=== PATIENT | female | born 1950 | race Caucasian/White ===

== ENCOUNTER → 2016-06-07 | Outpatient (CLI) | payer OTHER ==
--- NOTE | 2016-06-07 19:44 | REP ---
Right shoulder series: Three views: History: Right shoulder pain after a fall. Findings: There is a nondisplaced fracture through the greater tuberosity of the right proximal humerus. Diffuse osteopenia is noted. The right glenohumeral and acromioclavicular joints are normally aligned. No other fracture is seen. There is dystrophic soft-tissue calcification at the superior aspect of the glenohumeral articulation consistent with calcific tendonitis or bursitis. Mild osteoarthritis is seen at the AC joint. Impression: Nondisplaced greater tuberosity fracture right proximal humerus. Diffuse osteopenia. Signed by Ray Soto MD 06/08/2016 08:56 A
--- NOTE | 2016-06-07 19:44 | REP ---
Right clavicle series: Two views. History: Pain after a fall. Findings: A comminuted nondisplaced fracture of the greater tuberosity of the proximal humerus is noted as on the shoulder series. The clavicle appears intact. AC joint hypertrophy is seen consistent with osteoarthritis. Impression: Nondisplaced fracture right proximal humerus. No other fracture seen. Signed by Ray Soto MD 06/08/2016 08:56 A
== END ==
LOC: M WUC 18:50
PROVIDERS: ATTEND Physician Assistant
DX: S42.254A Nondisplaced fracture of greater tuberosity of right humerus, initial encounter for closed fracture (principal); X58.XXXA Exposure to other specified factors, initial encounter; Y92.89 Other specified places as the place of occurrence of the external cause; Y93.89 Activity, other specified; Y99.8 Other external cause status; M19.011 Primary osteoarthritis, right shoulder; M85.821 Other specified disorders of bone density and structure, right upper arm

== ENCOUNTER → 2016-06-15 | Outpatient (REF) | payer OTHER ==
[2016-06-15 12:28] LABS: PHOSPHORUS LEVEL 3.7 MG/DL (2.5-4.9)
== END ==
LOC: M LAB REF 12:01
PROVIDERS: ATTEND Nurse Practitioner Adult Health
DX: M85.80 Other specified disorders of bone density and structure, unspecified site (principal)

== ENCOUNTER 2016-11-01 12:57 | Inpatient (IN) | payer OTHER ==
[~2016-11-01] VITALS: Ht 162.6 cm; Wt 63.0 kg
[2016-11-01] MEDS ORDERED: VENL100T PO (13:10)
[2016-11-01] MEDS ORDERED: ASPIRIN 81 MG CHEW TABLET PO ONE (13:45)
[2016-11-01 13:59] LABS: BASO % 0.3 % (0.0-1.0); EOS # 0.1 K/mm3 (0.0-0.50); EOS % 0.9 % (0.0-3.0); LARGE UNSTAINED CELL # 0.1 K/mm3 (0.0-0.4); LARGE UNSTAINED CELL % 1.1 % (0.0-4.0); LYMPH # 1.5 K/mm3 (1.5-4.5); LYMPH % 20.4 % (24.0-44.0); MEAN CORPUSCULAR HEMOGLOBIN 31.6 pg (27.0-33.0); MEAN CORPUSCULAR HGB CONC 33.2 g/dl (32.0-36.5); MEAN CORPUSCULAR VOLUME 95.3 fl (80.0-96.0); MONO # 0.4 K/mm3 (0.0-0.8); MONO % 5.4 % (0.0-5.0); NEUTROPHILS % 71.8 % (36.0-66.0); PLATELET COUNT, AUTOMATED 371 k/mm3 (150-450); RED CELL DISTRIBUTION WIDTH 13.4 % (11.5-14.5)
[2016-11-01 14:20] LABS: ANION GAP 9 MEQ/L (8-16); BLOOD UREA NITROGEN 19 MG/DL (7-18); CALCIUM LEVEL 8.9 MG/DL (8.8-10.2); CARBON DIOXIDE LEVEL 25 MEQ/L (21-32); CHLORIDE LEVEL 106 MEQ/L (98-107); CREATININE FOR GFR 0.82 MG/DL (0.55-1.02); GLOMERULAR FILTRATION RATE > 60.0 (>45); GLUCOSE, FASTING 111 MG/DL (80-110); POTASSIUM SERUM 3.9 MEQ/L (3.5-5.1); SODIUM LEVEL 140 MEQ/L (136-145)
--- NOTE | 2016-11-01 14:34 | REP ---
PORTABLE CHEST, ONE VIEW: HISTORY: Chest pain. A diffuse increase in interstitial markings is present in the lungs. The cardiac silhouette is enlarged. The pulmonary vasculature is prominent. IMPRESSION: Findings consistent with congestive heart failure. Signed by Yonatan Camp MD 11/01/2016 02:35 P
[2016-11-01] MEDS ORDERED: ISOVUE-370 76% 100ML VIAL (Q9967) As Ordered ONE (14:42)
[2016-11-01] MEDS ORDERED: FUROSEMIDE 40 MG/4 ML VIAL (J1940) IV ONE (14:45)
[2016-11-01] MEDS ORDERED: METOPROLOL TART 50 MG TAB PO ONE (15:00)
[2016-11-01] MEDS ORDERED: LABETALOL HCL 100 MG/20 ML VIAL IV STA (15:42)
--- NOTE | 2016-11-01 15:47 | REP ---
CT pulmonary angiogram: With IV contrast. History: Dyspnea. Question pulmonary embolus. Comparison studies: Today's chest x-ray. Contrast dose: 75 cc's of Isovue [address] technique: Helical scanning is acquired and overlapping 1.5 mm and contiguous 3 mm axial images are reformatted. In addition, a 3-D work station is deployed to generate thick slab maximum intensity projection images in sagittal and coronal imaging projections. CT pulmonary angiographic findings: There is good opacification of the pulmonary arterial tree. There is no CT evidence of pulmonary embolus. There is central pulmonary artery dilation with some pruning suggesting pulmonary arterial hypertension. There is right atrial and left atrial enlargement and some left ventricular enlargement is seen. Question left ventricular hypertrophy. Overall cardiomegaly is observed. The thoracic aorta is not very well enhanced because of the timing postcontrast but no obvious aneurysm or other abnormality. There is an area of alveolar consolidation involving the anterior segment of the right upper lobe consistent with pneumonia. There are moderate emphysematous changes throughout the upper lobes bilaterally. There is mild fissural thickening on the left. No free pleural effusion is seen. No adrenal mass is observed. Impression: 1. No CT evidence of pulmonary embolus. 2. There is evidence of pulmonary arterial hypertension, left ventricular hypertrophy, and four-chamber cardiomegaly. 3. There is a right upper lobe infiltrate consistent with pneumonia. 4. 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 Signed by Ray Soto MD 11/01/2016 05:20 P
[2016-11-01] MEDS ORDERED: VENL150C43 PO (16:18)
[2016-11-01] MEDS ORDERED: IBUPOTC PO (16:18)
[2016-11-01] MEDS ORDERED: VITA100067 PO (16:18)
[2016-11-01] MEDS ORDERED: AZITHROMYCIN INJ 500 MG, VIAL MATE ADAPTER 1 EACH in D5W 250 ML IV ONE (17:00)
[2016-11-01] MEDS ORDERED: cefTRIAXone SOD 2 GM in D5W MINI-BAG PLUS 50 ML IV ONE (17:00)
[2016-11-01] MEDS ORDERED: ALBUTEROL SULFATE 2.5 MG/0.5 ML INH NEB SOLN INH PRN (19:30)
[2016-11-01] MEDS ORDERED: ONDANSETRON 4MG/2ML VIAL (J2405) IV PRN (19:30)
--- NOTE | 2016-11-01 20:21 | HPE ---
DATE OF ADMISSION: 11/01/2016 PRIMARY CARE PROVIDER: Makeda Bello Patient sees no specialist physicians. CHIEF COMPLAINT: Hard to breathe. The following is a summary of her presentation: This is a 66-year-old with a 2-3 week history of increasing shortness of breath, dyspnea on exertion. She previously had no limitation to her exercise. Currently she can only walk 300 feet. She has had cough. She treated herself a week ago with a Z-Harry that she happened to have on hand. She noticed last week when she was in [place] that the heat and humidity was making it more difficult to breathe. She was coughing at one point and producing some green sputum with no mention of blood. She does not describe orthopnea, paroxysmal nocturnal dyspnea. said that she has had some abnormal breathing at night but no apnea. She does not experience daytime sleepiness. PAST MEDICAL HISTORY: Unremarkable. PAST SURGICAL HISTORY: Notable for tubal ligation. ALLERGIES: She has allergies to LATEX, which causes a rash. FAMILY HISTORY: Notable for mother who at age 76. She had a history of congestive heart failure. Father of chronic obstructive pulmonary disease (COPD) at age 66. SOCIAL HISTORY: She quit smoking 21 years ago. She does not use alcohol. She lives on [facility]. 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 REVIEW OF SYSTEMS: Notable for no headache, no visual changes, no runny nose, no sore throat. She has had cough as previously described but not currently and that is actually much better. No palpitations. No chest pain. No chest discomfort. No orthopnea. No paroxysmal nocturnal dyspnea. No lower extremity edema. No abdominal pain. No change in bowel or bladder habits. No focal weakness. No history of diabetes. No history of stress test. Otherwise unremarkable. PHYSICAL EXAMINATION: Temperature is 96.7, pulse 62, respiratory rate 18, blood pressure 130/86, 92% on room air. During the course of her stay, though, her blood pressure was as high as 201/123 at 3:00 p.m. Intake and output notable for a negative fluid balance of -800 during her stay. Body mass index 25.6. She is awake, appropriately interactive, pleasantly conversant. Head is normocephalic. She wears corrective lenses. Pupils equal, round and reactive. Anicteric. Not injected. Nasal septum is midline. Mucous membranes are moist. Neck is supple. No cervical or supraclavicular adenopathy. No obvious elevation of jugular venous pressure (JVP). No hepatojugular reflux. Breathing is symmetrical and rested. I:E ratio to 1:3. No wheezes, rales or rhonchi. No costovertebral angle tenderness. No sacral edema. She does have a high quality tattoo on her low back. Abdomen is soft, doughy, nontender, somewhat ticklish. Trace right lower extremity edema. Strength is symmetrical in upper and lower extremities. Cranial nerves II-XII are grossly intact. She has normal mood and affect. White cell count of 7, hemoglobin 13.7 and platelets of 371. D-dimer is 3258. Troponins are negative times two. BNP is 1680. Creatinine is 0.82. Blood culture are pending. Chest x-ray was read as congestive heart failure. CT angiogram for further imaging showed no evidence of pulmonary embolism. Pulmonary artery hypertension, left ventricular hypertrophy, cardiomegaly. Right upper lobe infiltrate consistent with pneumonia. COPD with upper lobe predominance. EKG shows changes from 2003. Inferior Q waves. Some left atrial enlargement. My assessment is as follows: This is a 66-year-old with partially treated pneumonia and possible congestive heart failure who will require a two-midnight hospital stay. The plan will be as follows: 1. Community-acquired pneumonia. The patient is treated with ceftriaxone and Zithromax. Will get a respiratory panel and culture if able. 2. Cardiovascular. The patient has an abnormal EKG, has evidence of enlarged heart on radiologic imaging. Will get a 2D echocardiogram. She is not obviously fluid overloaded on physical exam, although did have elevated blood pressure at the time of presentation. Will be monitored on telemetry. 3. Deep vein thrombosis (DVT) prophylaxis was ordered. 4. Based on asymmetrical lower extremity edema and findings in her history, will get lower extremity Doppler even though CT angiogram is negative. May be possibility of lower extremity DVT and small pulmonary emboli based on recent history of travel.
--- NOTE | 2016-11-01 20:50 | REPUSA ---
Clinical history: shortness of breath. Findings: The common femoral, superficial femoral, popliteal, and other deep venous structures compre ss normally and demonstrate normal color Doppler flow. Normal venous waveforms with augmentation are seen. Impression: No evidence of deep vein thrombosis in either femoral popliteal venous system.
[2016-11-01 21:39] VITALS: BP 145/96
[2016-11-02] VITALS (9 sets, daily range): BP systolic 126–164; BP diastolic 71–112
[2016-11-02 07:07] LABS: BASO % 0.2 % (0.0-1.0); EOS # 0.1 K/mm3 (0.0-0.50); EOS % 0.9 % (0.0-3.0); LARGE UNSTAINED CELL # 0.1 K/mm3 (0.0-0.4); LARGE UNSTAINED CELL % 1.1 % (0.0-4.0); LYMPH # 1.8 K/mm3 (1.5-4.5); LYMPH % 23.8 % (24.0-44.0); MEAN CORPUSCULAR HGB CONC 33.3 g/dl (32.0-36.5); MEAN CORPUSCULAR VOLUME 95.9 fl (80.0-96.0); MONO # 0.4 K/mm3 (0.0-0.8); NEUTROPHILS # 4.8 K/mm3 (1.8-7.7); PLATELET COUNT, AUTOMATED 364 k/mm3 (150-450); RED CELL DISTRIBUTION WIDTH 13.4 % (11.5-14.5)
[2016-11-02 07:27] LABS: ALBUMIN/GLOBULIN RATIO 1.03 (1.00-1.93); ALKALINE PHOSPHATASE 104 U/L (45-117); ALT/SGPT 32 U/L (12-78); ANION GAP 9 MEQ/L (8-16); AST/SGOT 24 U/L (15-37); BILIRUBIN,TOTAL 0.5 MG/DL (0.2-1.0); BLOOD UREA NITROGEN 23 MG/DL (7-18); CALCIUM LEVEL 8.5 MG/DL (8.8-10.2); CARBON DIOXIDE LEVEL 26 MEQ/L (21-32); CHLORIDE LEVEL 108 MEQ/L (98-107); CREATININE FOR GFR 0.86 MG/DL (0.55-1.02); GLOMERULAR FILTRATION RATE > 60.0 (>45); GLUCOSE, FASTING 103 MG/DL (80-110); MAGNESIUM LEVEL 2.2 MG/DL (1.8-2.4); POTASSIUM SERUM 4.4 MEQ/L (3.5-5.1); SODIUM LEVEL 143 MEQ/L (136-145); TOTAL PROTEIN 5.9 GM/DL (6.4-8.2)
[2016-11-02] MEDS: ENOXAPARIN 40 MG/0.4 ML SYRINGE (J1650) SC SCH (08:43)
[2016-11-02] MEDS: VENLAFAXINE **XR** 75MG CAPSULE PO SCH (08:43)
[2016-11-02] MEDS ORDERED: FUROSEMIDE 20 MG/2 ML VIAL (J1940) IV ONE (16:00)
--- NOTE | 2016-11-02 16:07 | IPN ---
DATE: 11/02/2016 Ms. Ortiz is feeling somewhat better this morning. She has no complaints of pain, chest pain. Did have some episodes of shortness of breath last night but none currently. Temperature is 98.2, pulse 80, respiratory rate 19, blood pressure 159/100, 98% on 3 liters. Intake and output notable for negative fluid balance of -1400. Body mass index (BMI) 25. Is awake, appropriately interactive, pleasant conversant. Breathing is symmetrical and rested. There are faint bibasilar crackles that partially clear with deep inspiration. Heart is distant sounding. Normal S1, S2. Abdomen soft, doughy, nontender. White cell count 7.0, hemoglobin 13.2, and platelets of 364. BUN is 23, creatinine 0.86. Troponins have been negative times three. C-reactive protein 1.3. ASSESSMENT: This is a 66-year-old with community-acquired pneumonia and possibly congestive heart failure. PLAN: 1. Community-acquired pneumonia. Patient continues on ceftriaxone and Zithromax. Awaiting blood culture results. Respiratory panel has been ordered but was never sent. At this point it seems less important. 2. Cardiovascular. Patient had an abnormal EKG on our chart and radiologic imaging. Will give a dose of Lasix, as her blood pressure is trending upward, and she is not obviously fluid overloaded on physical exam. Echocardiogram is pending. 3. Patient has deep vein thrombosis (DVT) prophylaxis. 4. Patient was noted to have trace right lower extremity edema. Lower extremity Doppler negative.
[2016-11-02] MEDS: AZITHROMYCIN INJ 500 MG, VIAL MATE ADAPTER 1 EACH in D5W 250 ML IV SCH (16:16)
[2016-11-02] MEDS: cefTRIAXone SOD 2 GM in D5W MINI-BAG PLUS 50 ML IV SCH (17:33)
[2016-11-02] MEDS: NITROGLYCERIN 2% OINT 1 GM *U/D* PKT TOP SCH ×2 (17:34→23:52)
[2016-11-02] MEDS: ACETAMINOPHEN TAB 650MG DOSE (2X325MG) PO PRN (22:08)
--- NOTE | 2016-11-02 23:20 | ECGEPIP ---
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 Electronically Signed On 11-02-2016 23:20:00 EDT by Ward Mixon
[2016-11-03] VITALS (10 sets, daily range): BP systolic 122–180; BP diastolic 70–126
[2016-11-03] MEDS: ACETAMINOPHEN TAB 650MG DOSE (2X325MG) PO PRN ×2 (03:38→08:23)
[2016-11-03] MEDS ORDERED: LABETALOL HCL 100 MG/20 ML VIAL IV STA (04:02)
[2016-11-03] MEDS: NITROGLYCERIN 2% OINT 1 GM *U/D* PKT TOP SCH ×2 (05:51→12:10)
[2016-11-03 06:39] LABS: BASO % 0.3 % (0.0-1.0); EOS % 0.3 % (0.0-3.0); LARGE UNSTAINED CELL # 0.1 K/mm3 (0.0-0.4); LARGE UNSTAINED CELL % 1.6 % (0.0-4.0); LYMPH # 1.1 K/mm3 (1.5-4.5); LYMPH % 19.3 % (24.0-44.0); MEAN CORPUSCULAR HEMOGLOBIN 31.9 pg (27.0-33.0); MEAN CORPUSCULAR HGB CONC 33.2 g/dl (32.0-36.5); MEAN CORPUSCULAR VOLUME 96.3 fl (80.0-96.0); MONO # 0.3 K/mm3 (0.0-0.8); MONO % 5.2 % (0.0-5.0); NEUTROPHILS # 4.3 K/mm3 (1.8-7.7); NEUTROPHILS % 73.2 % (36.0-66.0); PLATELET COUNT, AUTOMATED 380 k/mm3 (150-450); RED CELL DISTRIBUTION WIDTH 13.1 % (11.5-14.5); WHITE BLOOD COUNT 5.9 K/mm3 (4.0-10.0)
[2016-11-03 07:09] LABS: ALBUMIN 2.9 GM/DL (3.2-5.2); ALBUMIN/GLOBULIN RATIO 0.97 (1.00-1.93); BILIRUBIN,TOTAL 0.6 MG/DL (0.2-1.0); CALCIUM LEVEL 8.1 MG/DL (8.8-10.2); CREATININE FOR GFR 1.01 MG/DL (0.55-1.02); GLOMERULAR FILTRATION RATE 58.7 (>45); POTASSIUM SERUM 4.9 MEQ/L (3.5-5.1); TOTAL PROTEIN 5.9 GM/DL (6.4-8.2)
[2016-11-03] MEDS: ENOXAPARIN 40 MG/0.4 ML SYRINGE (J1650) SC SCH (08:22)
[2016-11-03] MEDS: VENLAFAXINE **XR** 75MG CAPSULE PO SCH (08:22)
--- NOTE | 2016-11-03 08:56 | ECGEPIP ---
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
[2016-11-03] MEDS ORDERED: METOPROLOL TART 25 MG TABLET PO SCH (12:00)
[2016-11-03] MEDS ORDERED: FUROSEMIDE 20 MG/2 ML VIAL (J1940) IV ONE (13:00)
--- NOTE | 2016-11-03 14:52 | ECHO ---
DATE OF STUDY: 11/03/2016 REFERRING PHYSICIAN: Dr. Ward Osborn INDICATION: Abnormal ECG. HEIGHT: 163 cm WEIGHT: 68 kg 2D MEASUREMENTS: Left atrium: 4.0 cm Aortic root: 3.05 cm Ventricular septum: 1.21 cm Posterior wall: 1.43 cm Left ventricle diastole: 4.5 cm LVOT: 2.1 cm Inferior vena cava: 2.5 cm DOPPLER MEASUREMENTS: Aortic valve velocity: 74.4 cm/s LVOT velocity: 51.1 cm/s LVOT VTI: 7.7 cm Moderate mitral regurgitation. Mitral E velocity: 51.3 cm/s Mitral A velocity: 83.4 cm/s Mild tricuspid regurgitation. Estimated right ventricle systolic pressure at least 56 mmHg assuming a right pressure of at least 20 mmHg based on dilated inferior vena cava with marked reduction of respiratory variation. Moderate pulmonic regurgitation. Pulmonary artery systolic pressure: 51 mmHg by pulmonary acceleration time method. MITRAL ANNULAR TISSUE DOPPLER: E prime septal: 4.6 cm/s E prime lateral: 4.8 cm/s DESCRIPTION: Rhythm was sinus. Image quality was good. No pericardial effusion. This is a 2D, M-mode, color flow Doppler, and pulse wave Doppler examination including mitral annular tissue Doppler. CONCLUSIONS: 1. Normal left ventricle cavity size at end diastole. Mild concentric left ventricle hypertrophy. Moderate global left ventricular (LV) hypokinesis with severe hypokinesis to akinesis involving the inferior wall. Paradoxical septal motion. Severe reduction overall LV systolic function. Left ventricular ejection fraction (LVEF) of 20% by visual estimate. 2. Grade 1 LV diastolic dysfunction (impaired relaxation filling pattern). Suggestive of elevated left ventricle end diastolic pressure. 3. Mild left atrial dilatation. 4. Mild mitral annular calcification. Moderate mitral regurgitation. No mitral valve prolapse. No flail segments of the mitral leaflets. 5. Suggestive of severe elevation of pulmonary artery systolic pressure (51 mmHg) and estimated right ventricle systolic pressure (at least 56 mmHg). Mild tricuspid regurgitation. Normal right ventricle size and systolic function. Inferior vena cava plethora suggestive of elevated central venous pressure of at least 20 mmHg. Small amount of type 2 spontaneous echocontrast seen in inferior vena cava. 6. Intra-atrial septal aneurysm with a small secundum atrial septal defect with a very small amount of left to right shunting. Presence of a patent foramen ovale as well, which was very small with a very small amount of left atrium to right atrial shunting by color flow Doppler. Results of this study were explained by telephone to Dr. Ward Osborn. Dr. Osborn will do an outpatient referral to Dr. Mixon for further outpatient evaluation management of heart failure and cardiomyopathy and abnormal ECG. [facility] HOSPITALPooja
[2016-11-03] MEDS: AZITHROMYCIN INJ 500 MG, VIAL MATE ADAPTER 1 EACH in D5W 250 ML IV SCH (16:06)
[2016-11-03] MEDS: cefTRIAXone SOD 2 GM in D5W MINI-BAG PLUS 50 ML IV SCH (17:00)
[2016-11-03] MEDS ORDERED: NITROGLYCERIN 2% OINT 1 GM *U/D* PKT As Ordered ONE (19:23)
[2016-11-03] MEDS: CARVedilol 3.125 MG TAB PO SCH (20:14)
[2016-11-03] MEDS: ENTRESTO 24-26MG TABLET (SACUBITRIL/VALSARTAN) PO SCH (20:14)
[2016-11-04] VITALS: BP 141/94
[2016-11-04 04:00] VITALS: BP 120/79
[2016-11-04 05:52] LABS: BASO % 0.3 % (0.0-1.0); EOS % 0.2 % (0.0-3.0); LARGE UNSTAINED CELL # 0.1 K/mm3 (0.0-0.4); LARGE UNSTAINED CELL % 1.9 % (0.0-4.0); LYMPH % 27.2 % (24.0-44.0); MEAN CORPUSCULAR HEMOGLOBIN 31.9 pg (27.0-33.0); MEAN CORPUSCULAR HGB CONC 33.2 g/dl (32.0-36.5); MEAN CORPUSCULAR VOLUME 95.9 fl (80.0-96.0); MONO # 0.6 K/mm3 (0.0-0.8); MONO % 8.2 % (0.0-5.0); NEUTROPHILS # 4.2 K/mm3 (1.8-7.7); NEUTROPHILS % 62.2 % (36.0-66.0); PLATELET COUNT, AUTOMATED 403 k/mm3 (150-450); RED CELL DISTRIBUTION WIDTH 13.4 % (11.5-14.5); WHITE BLOOD COUNT 6.8 K/mm3 (4.0-10.0)
[2016-11-04 06:16] LABS: ALBUMIN 2.8 GM/DL (3.2-5.2); ALBUMIN/GLOBULIN RATIO 0.82 (1.00-1.93); ALKALINE PHOSPHATASE 100 U/L (45-117); ALT/SGPT 31 U/L (12-78); AST/SGOT 28 U/L (15-37); BILIRUBIN,TOTAL 0.4 MG/DL (0.2-1.0); BLOOD UREA NITROGEN 18 MG/DL (7-18); CALCIUM LEVEL 7.4 MG/DL (8.8-10.2); CARBON DIOXIDE LEVEL 26 MEQ/L (21-32); CHLORIDE LEVEL 107 MEQ/L (98-107); CREATININE FOR GFR 0.96 MG/DL (0.55-1.02); GLOMERULAR FILTRATION RATE > 60.0 (>45); GLUCOSE, FASTING 104 MG/DL (80-110); MAGNESIUM LEVEL 1.8 MG/DL (1.8-2.4); TOTAL PROTEIN 6.2 GM/DL (6.4-8.2)
[2016-11-04 06:20] LABS: ANION GAP 10 MEQ/L (8-16); SODIUM LEVEL 143 MEQ/L (136-145)
[2016-11-04 06:22] LABS: POTASSIUM SERUM 3.4 MEQ/L (3.5-5.1)
[2016-11-04 08:00] VITALS: BP 127/79
[2016-11-04] MEDS: ENOXAPARIN 40 MG/0.4 ML SYRINGE (J1650) SC SCH (08:34)
[2016-11-04 08:35] VITALS: BP 127/79
[2016-11-04] MEDS: CARVedilol 3.125 MG TAB PO SCH (08:35)
[2016-11-04] MEDS: ENTRESTO 24-26MG TABLET (SACUBITRIL/VALSARTAN) PO SCH (08:36)
[2016-11-04] MEDS ORDERED: CHLORTHALIDONE 12.5MG PER 1/2 TABLET PO SCH (09:00)
--- NOTE | 2016-11-04 09:16 | IPN ---
DATE: 11/03/2016 Ms. Ortiz is feeling much better. She has no complaints of pain, chest pain. She is not particularly short of breath, has been out of bed for short distances, but is limited as she has not been able to get a bed in the progressive care unit (PCU) and has been stuck in the emergency department. Temperature is 97.6, pulse 72, respiratory rate 18, blood pressure 122/78, 95% on room air. Blood pressure has been relatively high overnight. She has received some additional treatment for that. Breathing is symmetrical and rested. I:E ratio is 1:3. No wheezes, rales, or rhonchi. Heart is regular rate and rhythm. Normal S1, S2. Capillary refill is less than two seconds. Abdomen is soft, doughy, nontender. No significant lower extremity edema. LABORATORY DATA: White cell count 5.9, hemoglobin 13.7, and platelets of 380. BUN is 26, creatinine 0.06, CRP is 1.11. Echocardiogram was done this morning and was read to me by Dr. Mixon. Left ventricular systolic function is 20%. She has grade 1 diastolic dysfunction. She had elevation in her pulmonary systolic pressure, atrial septal aneurysm with small secundum atrial septal defect with a small amount of left to right shunting, PFO as well. ASSESSMENT: This is a 66-year-old with community-acquired pneumonia as well as decompensated systolic congestive heart failure. PLAN: 1. For community-acquired pneumonia, the patient continues on appropriate antibiotics and is improving. 2. Cardiovascular. The patient had an abnormal EKG and abnormal echocardiogram which shows decompensated systolic and diastolic dysfunction. I have discussed the case by phone with Dr. Mixon who has agreed to see the patient for consultation in his office as an outpatient. The patient will require an outpatient stress test. We have discussed medical managements which will include chlorthalidone, Coreg, and Entresto which has been ordered. The patient was given a dose of Lasix today and appears much more comfortable at the time of presentation. 3. The patient has appropriate deep vein thrombosis (DVT) prophylaxis.
[2016-11-04] MEDS ORDERED: ENTR1TAB PO (09:43)
[2016-11-04] MEDS ORDERED: CHLO125TA PO (09:43)
[2016-11-04] MEDS ORDERED: CARV3.12 PO (09:43)
[2016-11-04] MEDS: VENLAFAXINE **XR** 75MG CAPSULE PO SCH (10:16)
[2016-11-04] MEDS ORDERED: CEFD1CAP8 PO (11:08)
[2016-11-04] MEDS ORDERED: AZIT500T2 PO (11:08)
[2016-11-04 12:00] VITALS: BP 135/89
[2016-11-04] MEDS ORDERED: INFLUENZA QUADRIVALENT PF VACCINE 0.5ML SYRINGE (90686) IM SCH (13:00)
[2016-11-04] MEDS ORDERED: POTASSIUM CHLORIDE 10 MEQ SR TABLET PO ONE (14:00)
--- NOTE | 2016-11-04 17:01 | DSES ---
DATE OF ADMISSION: 11/01/2016 DATE OF DISCHARGE: 11/04/2016 No specialists involved in her care. No complications during her stay. No procedures performed during her stay. DISCHARGE DIAGNOSIS: Community-acquired pneumonia. SECONDARY DIAGNOSES: 1. Decompensated congestive heart failure with systolic and diastolic dysfunction. 2. Abnormal EKG. 3. Suspected ischemic cardiomyopathy. 4. Uncontrolled hypertension. SUMMARY OF HER HOSPITALIZATION: This is a 66-year-old who presented with increasing shortness of breath. She was found to have what is likely a partially treated pneumonia from the outpatient setting. Also, there was concern about the possibility of decompensated congestive heart failure based on an elevated brain natriuretic peptide (BNP) and enlarged heart. She eventually received an echocardiogram which showed left ventricular ejection fraction of 20% with global hypokinesis and somewhat severe hypokinesis at the inferior wall. She also had grade 1 diastolic dysfunction, estimated right side filling pressures, an intra-atrial septal aneurysm with small secundum atrial septal defect with a very small amount of left to right shunting, and the presence of a patent foramen ovale. I initially discussed this case by phone with Dr. Mixon as the patient had requested referral to his office and the patient later changed her request to be sent to Dr. Campbell's office for followup. I did discuss the case by phone with Dr. Campbell as well who will also be willing to see the patient in outpatient consultation. Temperature on the day of discharge 97.5, pulse 70, respiratory rate 18, blood pressure 127/79, 91% on room air. She is awake, appropriately interactive, pleasantly conversant, somewhat anxious. Mucous membranes are moist. Neck is supple. No elevation of jugular venous pulse (JVP). No hepatojugular reflux. No sacral or lower extremity edema. Breathing is symmetrical and rested. I:E ratio is 1:3. Heart is in a regular rate and rhythm. Abdomen is soft, doughy, nontender. Negative fluid status of -550. LABORATORY DATA: White cell count 6.8, hemoglobin 14.8. BUN 18, creatinine 0.9. DISCHARGE INSTRUCTIONS: Include the following: Followup with Dr. Campbell 11/09/2016 at 3:30 in the afternoon, Makeda Bello NP 11/10/2016 at 11:15. I am recommending no activity more vigorous than walking, two-gram sodium diet, 2000 mL per 24 hour fluid restriction, call Makeda Bello NP with three pound weight gain from workup as deemed by Dr. Zavala. DISCHARGE MEDICATIONS: Continue: - azithromycin 500 mg by mouth daily for two more doses - Coreg 3.125 mg every 12 hours - Cefdinir 300 mg by mouth twice a day for eight doses - chlorthalidone 12.5 mg by mouth daily - Entresto one tablet by mouth twice a day - venlafaxine 300 mg by mouth daily - vitamin D supplement Discontinue nonsteroidal antiinflammatory drugs (NSAIDs).
== END 2016-11-04 13:31 | disposition home or self-care (01) | DRG 139 ==
LOC: M ED 12:57 → M ED INP 19:23 → M PCU 11-03 15:30
PROVIDERS: ADMIT Internal Medicine; ATTEND Internal Medicine
DX: J18.9 Pneumonia, unspecified organism (principal); I50.43 Acute on chronic combined systolic (congestive) and diastolic (congestive) heart failure; I11.0 Hypertensive heart disease with heart failure; Q21.1 Atrial septal defect; R94.31 Abnormal electrocardiogram [ECG] [EKG]; I25.5 Ischemic cardiomyopathy; Z98.51 Tubal ligation status; Z91.040 Latex allergy status; Z87.891 Personal history of nicotine dependence; Z79.899 Other long term (current) drug therapy

== ENCOUNTER → 2017-03-19 | Outpatient (CLI) | payer OTHER | LOC: M WUC 13:50 | DX: S52.522A Torus fracture of lower end of left radius, initial encounter for closed fracture (principal); X58.XXXA Exposure to other specified factors, initial encounter; Y92.89 Other specified places as the place of occurrence of the external cause; Y93.89 Activity, other specified; Y99.8 Other external cause status | CPT/HCPCS: 73110 ==

== ENCOUNTER → 2019-12-23 | Outpatient (CLI) | payer OTHER ==
[~2019-12-23] MED LIST: AZIT500T5 PO; CARV3.12 PO; CEFD1CAP8 PO; CHLO125TA PO; ENTR1TAB PO; IBUPOTC PO; VENL100T PO; VENL150C43 PO; VITA100067 PO
--- NOTE | 2019-12-23 17:26 | REP ---
INDICATION: ABNORMAL RESULT ON OTHER CARDIOVASCULAR FUNCTION STUDY COMPARISON: None. TECHNIQUE: PA and lateral. FINDINGS: Lung gonzales demonstrate chronic appearing interstitial changes suggesting COPD/emphysematous disease. Mediastinum and cardiac silhouette normal. No focal consolidation, effusion, or pneumothorax. IMPRESSION: COPD/emphysematous changes suggested. No focal consolidation or effusion. <Electronically signed by Caleb Powers > 12/23/19 2089
== END ==
LOC: M WUC 16:45
PROVIDERS: ATTEND Nurse Practitioner Adult Health
DX: J44.9 Chronic obstructive pulmonary disease, unspecified (principal); R94.39 Abnormal result of other cardiovascular function study; I25.10 Atherosclerotic heart disease of native coronary artery without angina pectoris; I50.42 Chronic combined systolic (congestive) and diastolic (congestive) heart failure

== ENCOUNTER → 2021-02-03 | Outpatient (REF) | payer OTHER | LOC: M LAB REF 16:35 | PROVIDERS: ATTEND Nurse Practitioner Adult Health | DX: N39.0 Urinary tract infection, site not specified (principal) ==

== ENCOUNTER → 2022-03-30 | Outpatient (CLI) | payer MEDICARE, OTHER ==
[~2022-03-30] MED LIST changes: -CEFD1CAP8 PO; +CEFD300C41 PO
== END ==
LOC: M WHC 16:02
PROVIDERS: ATTEND Nurse Practitioner Adult Health
DX: Z12.31 Encounter for screening mammogram for malignant neoplasm of breast (principal)

== ENCOUNTER → 2023-04-05 | Outpatient (CLI) | payer OTHER ==
[~2023-04-05] MED LIST changes: +CEFD1CAP9 PO; -CEFD300C41 PO
== END ==
LOC: M WHC 14:42
PROVIDERS: ATTEND Nurse Practitioner Adult Health
DX: Z12.31 Encounter for screening mammogram for malignant neoplasm of breast (principal)

== ENCOUNTER → 2023-04-26 | Outpatient (REF) | payer OTHER | LOC: M LAB REF 16:17 | PROVIDERS: ATTEND Nurse Practitioner Adult Health | DX: N39.0 Urinary tract infection, site not specified (principal) ==

== ENCOUNTER → 2023-11-27 | Outpatient (REF) | payer OTHER | LOC: M LAB REF 16:08 | PROVIDERS: ATTEND Nurse Practitioner Adult Health | DX: J02.9 Acute pharyngitis, unspecified (principal) ==

== ENCOUNTER → 2023-12-25 | Outpatient (CLI) | payer OTHER | LOC: M WUC 15:11 | PROVIDERS: ATTEND Nurse Practitioner Adult Health | DX: J06.9 Acute upper respiratory infection, unspecified (principal) ==

== ENCOUNTER → 2024-03-28 | Outpatient (CLI) | payer OTHER | LOC: M WUC 08:31 | PROVIDERS: ATTEND Internal Medicine | DX: R05.9 Cough, unspecified (principal); J44.9 Chronic obstructive pulmonary disease, unspecified ==

== ENCOUNTER → 2024-04-09 | Outpatient (CLI) | payer OTHER | LOC: M WHC 16:18 | PROVIDERS: ATTEND Nurse Practitioner Adult Health | DX: Z12.31 Encounter for screening mammogram for malignant neoplasm of breast (principal); R92.323 Mammographic fibroglandular density, bilateral breasts ==

== ENCOUNTER → 2024-04-30 | Outpatient (CLI) | payer OTHER | LOC: M WHC 12:32 | PROVIDERS: ATTEND Nurse Practitioner Adult Health | DX: R92.8 Other abnormal and inconclusive findings on diagnostic imaging of breast (principal); R92.321 Mammographic fibroglandular density, right breast | CPT/HCPCS: 77065; G0279 ==

== ENCOUNTER → 2024-05-22 | Outpatient (REF) | payer OTHER | LOC: M LAB REF 17:05 | PROVIDERS: ATTEND Internal Medicine | DX: N39.0 Urinary tract infection, site not specified (principal) ==

== ENCOUNTER → 2024-10-25 | Outpatient (CLI) | payer OTHER ==
[~2024-10-25] MED LIST changes: +ATOR1TAB21 PO; +CARV12.5 PO; +CARV6.25 PO; +ECOT81TA5 PO; +ENTR1TAB7 PO; +MED REC COMMENT; +SPIR-10 PO
== END ==
LOC: M PLAIMG 12:12
PROVIDERS: ATTEND Nurse Practitioner Adult Health
DX: R05.3 Chronic cough (principal); J43.9 Emphysema, unspecified; J44.9 Chronic obstructive pulmonary disease, unspecified; J47.9 Bronchiectasis, uncomplicated; I70.0 Atherosclerosis of aorta; I25.10 Atherosclerotic heart disease of native coronary artery without angina pectoris; K44.9 Diaphragmatic hernia without obstruction or gangrene

== ENCOUNTER → 2024-12-04 | Outpatient (REF) | payer OTHER | LOC: M LAB REF 17:11 | PROVIDERS: ATTEND Nurse Practitioner Adult Health | DX: R30.0 Dysuria (principal) ==

== ENCOUNTER → 2025-01-28 | Outpatient (CLI) | payer OTHER | LOC: M SOG 07:35 | PROVIDERS: ATTEND Physician Assistant | DX: M79.644 Pain in right finger(s) (principal); M18.11 Unilateral primary osteoarthritis of first carpometacarpal joint, right hand ==

== ENCOUNTER 2025-02-17 09:16 | Day surgery (SDC) | payer OTHER ==
[~2025-02-17] VITALS: Ht 162.6 cm; Wt 67.6 kg
[2025-02-17] MEDS: SODIUM BICARBONATE 8.4% INJ 50MEQ/50ML VIAL XX ONE (09:50)
[2025-02-17] MEDS: LIDOCAINE W/EPINEPHrine 1% 20 ML VIAL XX ONE (09:50)
[2025-02-17 11:15] VITALS: BP 130/77; TEMP 97.6; O2SAT 95
== END 2025-02-17 11:40 | disposition home or self-care (01) ==
LOC: M SDC 09:16
PROVIDERS: ATTEND Orthopaedic Surgery Hand Surgery
DX: M65.331 Trigger finger, right middle finger (principal); J44.9 Chronic obstructive pulmonary disease, unspecified; Z79.899 Other long term (current) drug therapy; I25.2 Old myocardial infarction; Z87.891 Personal history of nicotine dependence